=== PATIENT | female | born 1950 | race Caucasian/White ===

== ENCOUNTER → 2017-06-08 | Day surgery (SDC) | payer OTHER ==
[~2017-06-08] VITALS: Ht 175.3 cm; Wt 81.7 kg
[~2017-06-08] MED LIST: 0.9% Sodium Chloride 1,000 ML IV PRN; BACL10TA PO; CALC600T12 PO; DEXL60CA5 PO; DILT120T3 PO; HYDR25TA4 PO; IPRA4AER IH; LACT1CAP26 PO; LEVO100T6 PO; MAGN500C4 PO; NABU500T PO; OXYB10TA PO; POTA2TAB16 PO; PRAM0.754 PO; SIMV20TA4 PO; Sodium Chloride LOK Flush 10 mL Syringe IV PRN; fentaNYL-PF 50 mCg/mL 2 mL Inj IVPUSH PRN
[2017-06-08 09:41] VITALS: BP 125/75; PULSE 71; RESP 17; O2SAT 95
[2017-06-08 11:13] VITALS: BP 99/69; PULSE 66; RESP 15; O2SAT 96
--- NOTE | 2017-06-08 11:15 | PCM.ENDCOL ---
Colonoscopy Date of Service: Jun 08, 2017 Physician Bala Edouard MD Pre Procedure Diagnosis: Screening Post Procedure Dx & Findings: Polyps hemorrhoids Procedure Colonoscopy PROCEDURE IN DETAIL: Prep adequate Withdrawal time 15 minutes After unremarkable rectal examination the Olympus video colonoscope was inserted patient's anal canal and was advanced to cecum. Landmarks were identified including the ileocecal valve and appendiceal orifice. Scope was withdrawn systematically. Visualized colonic mucosa showed healthy shiny mucosa with normal healthy-appearing vasculature. In the cecum, there was a 3 mm polyp which was removed completely using cold snare. In the ascending colon there are total of 4 polyps. 3 of the polyps are about 2-3 mm in size. These were all removed completely using cold snare. One last one was about 1 mm in size which was removed completely using cold forceps. In the transverse colon, there was a 3 mm polyp which was removed completely using cold snare. In the sigmoid colon there were 2 polyps which are about 2-3 mm in size which were all removed completely using cold snare. In the rectum retroflexion was done which showed hemorrhoids. Anal canal was inspected carefully on the way out and hemorrhoids noted. Impression Polyps 8 status post complete removal Hemorrhoids Recommendation Repeat colonoscopy 3 years Follow up in GI clinic Presedation Assessment Risks and Benefits Informed consent was obtained from the patient after all risks and benefits including but not limited to drug reaction, infection, pain, bleeding, perforation, as well as alternatives were discussed. Patient monitoring Continuous pulse oximetry, cardiac monitoring, blood pressure monitoring, IV access, and oxygen at 2L per nasal cannula. Periprocedural Fentanyl: Fentanyl 100mcg Incrementally Midazolam: Midazolam 7mg Incrementally Complications There were no periprocedural complications identified. Post Procedure Plan Post Procedure Recommendations 1. Restrict activities today. 2. Resume normal activities in the morning. 3. Resume medications. 4. Patient informed of normal post procedure side effects as bloating, drowsiness, blood streaking in the stool. 5. average risk CRCS. If colon polyps come back as: -Hyperplastic- can repeat colonoscopy in 10 years -Tubular adenoma- repeat colonoscopy in 5 years -Tubulovillous/villous adenoma- repeat colonoscopy in 3 years -If any dysplasia- return to clinic as soon as possible 6. Please don't hesitate to call me with any questions. Bala Edouard MD Jun 08, 2017 11:15
[2017-06-08 11:23] VITALS: BP 86/63; PULSE 63; RESP 16; O2SAT 96
[2017-06-08 11:33] VITALS: BP 99/59; PULSE 63; RESP 16; O2SAT 97
[2017-06-08 11:52] VITALS: BP 88/59; PULSE 67; RESP 14; O2SAT 96
[2017-06-08 11:53] VITALS: BP 100/63; PULSE 66; RESP 14; O2SAT 98
--- NOTE | 2017-06-12 10:11 | PATH ---
SURGICAL PATHOLOGY Attending Physician:Blaa Edouard M.D. CASE STATUS: Signed Out PATIENT NAME: JUSTIN ARREAGA PID: [id number] : 1950 DATE COLLECTED:06/08/2017 21:33 SPECIMEN: 1: Colon, Polyp 2: Colon, Polyp 3: Colon, Polyp 4: Colon, Polyp CLINICAL HISTORY: 1). CECAL POLYP X 1 2). ASCENDING POLYP X 4 3). TRANSVERSE POLYP X 1 4). SIGMOID POLYP X 2 FINAL DIAGNOSIS: 1. Cecal Polyp x1, Biopsy: Tubular adenoma in two of two fragments. 2. Ascending Polyp x 4, Biopsy: Tubular adenoma in seven of eight fragments. 3. Transverse Polyp x1, Biopsy: Tubular adenoma. 4. Sigmoid Polyp x2, Biopsy: Tubular adenoma in two of two fragments. ICD10: D12.6 GROSS DESCRIPTION: The specimen is received in four formalin filled containers labeled with the patient's name. 1). The specimen is labeled "cecal polyp" and consists of a 0.3 x 0.2 x 0.2 CM portion of tissue which is entirely submitted in cassette 1A. 2). The specimen is labeled "ascending polyp" and consists of multiple portions of tissue which aggregate to 0.3 x 0.3 x 0.2 CM. The specimen is entirely submitted in cassette 2A. 3). The specimen is labeled "transverse polyp" and consists of a 0.3 x 0.2 x 0.2 CM portion of tissue which is entirely submitted in cassette 3A. 4). The specimen is labeled "sigmoid polyp" and consists of 2 portions of tissue which aggregate to 0.3 x 0.3 x 0.2 CM. The specimen is entirely submitted in cassette 4A. 06/08/2017AK ICD-9 CODES: CPT CODES: 1: 41464 2: 38591 3: 86185 4: 96305 Electronically Signed Out Andrea Lazcnao MD [facility] Pathology [facility] [address], [place] [address] Technical component performed at [facility], [address], [place], [address]
== END | disposition home or self-care (01) ==
LOC: END 07:44
PROVIDERS: ATTEND Internal Medicine
DX: Z12.11 Encounter for screening for malignant neoplasm of colon (principal); D12.0 Benign neoplasm of cecum; D12.2 Benign neoplasm of ascending colon; D12.3 Benign neoplasm of transverse colon; D12.5 Benign neoplasm of sigmoid colon; K64.8 Other hemorrhoids; Z86.010 Personal history of colon polyps; I10 Essential (primary) hypertension; G47.33 Obstructive sleep apnea (adult) (pediatric); G25.81 Restless legs syndrome; Z87.891 Personal history of nicotine dependence
CPT/HCPCS: 45385; 99153; G0500; J2250; J3010; J7030

== ENCOUNTER → 2017-06-30 | Day surgery (SDC) | payer MEDICARE ==
[~2017-06-30] VITALS: Ht 175.3 cm; Wt 86.2 kg
[~2017-06-30] MED LIST changes: +0.9% Sodium Chloride 1,000 ML IV ONE; -BACL10TA PO; +Lidocaine Topical 2% 30 mL Jelly ONE; -NABU500T PO; +OLME5TAB3 PO; -POTA2TAB16 PO; -PRAM0.754 PO; +PRAM2.252 PO; +[UNRECOGNIZED DRUG - CODE] PO; +fentaNYL-PF 50 mCg/mL 2 mL Inj ONE
[2017-06-30 07:25] VITALS: BP 123/74; PULSE 52; O2SAT 95
--- NOTE | 2017-06-30 08:23 | PCM.ENDEGD ---
EGD Date of Service: Jun 30, 2017 Physician Bala Edouard MD Pre Procedure Diagnosis: Hoarseness reflux Post Procedure Dx & Findings: Fundic polyp with erosion and Baeza's possible Procedure Esophagogastroduodenoscopy PROCEDURE IN DETAIL: After proper sedation, Olympus video endoscope was inserted into patient's mouth and esophagus was successfully intubated. Scope introduced esophagus. Esophagus showed normal shiny whitish mucosa consistent with squamous cell component. Z line was at 41 cm from the incisors. Some irregularities noted. Unclear if there is Baeza's. Narrow banding suggest that there could be Baeza's. Four-quadrant biopsies obtained. Scope further advanced to the stomach. Stomach showed normal shiny mucosa with normal appearing rugae folds without any ulcer mass erosion. Patient had 2 small fundic polyp with surface erosion. The largest was about 4 mm and the other one was about 3 mm. There both resected completely using cold snare. Cardia fundus body antrum pylorus were all visualized. Retroflexion was done. Stomach was easily inflated and deflatable using air. Scope further events to the distal duodenum. Duodenum revealed normal villous structures with normal appearing folds without any mass ulcer erosion. Impression Possible Baeza's Fundic polyp 2 with erosion. Recommendation Await biopsies 24 hour pH study Presedation Assessment Risks and Benefits Informed consent was obtained from the patient after all risks and benefits including but not limited to drug reaction, infection, pain, bleeding, perforation, as well as alternatives were discussed. Patient monitoring Continuous pulse oximetry, cardiac monitoring, blood pressure monitoring, IV access, and oxygen at 2L per nasal cannula. Periprocedural Fentanyl: Fentanyl 100mcg Incrementally Midazolam: Midazolam 4mg Incrementally Complications There were no periprocedural complications identified. Post Procedure Plan Post Procedure Recommendations 1. Restrict activities today. 2. Resume normal activities in the morning. 3. Resume medications. 4. GERD behavioral modification: - Avoid fatty, acidic, spicy, large meals - Do not lie down after meals - Do not eat or drink anything for at least 2 1/2 hours before going to bed at night - Discontinue tobacco and alcohol - Decrease or avoid caffeine - Avoid chocolate and mints - Decrease weight - Avoid aspirin and non steroidal anti-inflammatory agents (NSAID) such as Aleve, Advil, Mobic, Naproxen, Ibuprofen, etc 5. Add proton pump inhibitor. Take 30 minutes before 1st meal of the day. 6. Patient informed of normal post procedure side effects as bloating, drowsiness, blood streaking in the stool 7. If gastric biopsy reveal H.pylori, continue with appropriate treatment 8. If small bowel biopsy reveals celiac, continue with appropriate treatment 9. Please don't hesitate to call me with any questions Bala Edouard MD Jun 30, 2017 08:23
[2017-06-30 08:28] VITALS: BP 109/74; PULSE 65; RESP 16; O2SAT 91
[2017-06-30 08:42] VITALS: BP 112/76; PULSE 56; RESP 16; O2SAT 91
[2017-06-30 08:57] VITALS: BP 104/70; PULSE 56; RESP 14; O2SAT 97
--- NOTE | 2017-07-01 16:07 | PATH ---
SURGICAL PATHOLOGY Attending Physician:Bala Edouard M.D. CASE STATUS: Signed Out PATIENT NAME: JUSTIN ARREAGA PID: [id number] : 1950 DATE COLLECTED:06/30/2017 21:33 SPECIMEN: 1: Stomach, Polyp, Biopsy 2: Esophagus, Biopsy CLINICAL HISTORY: 1). GASTRIC POLYP X2 2). DISTAL ESOPHAGUS BIOPSY FINAL DIAGNOSIS: 1. Gastric Polyp x2, Biopsy: Portions of fundic gland polyp; consultation pending to rule out atypia. Results will be reported as an addendum. 2. Distal Esophagus, Biopsy: Inflamed portions of squamocolumnar junctional mucosa. Negative for intestinal metaplasia. Negative for dysplasia and malignancy. ICD10: K31.7 GROSS DESCRIPTION: The specimen is received in two formalin filled containers labeled with the patient's name. 1). The specimen is received in formalin and labeled "gastric polyp X2" and consists of 2 portions of tissue which aggregate to 0.3 x 0.3 x 0.3 CM. The specimen is entirely submitted in cassette 1A. 2). The specimen is labeled "distal esophagus" and consists of 3 tiny portions of tissue which aggregate to 0.3 x 0.2 x 0.2 CM. The specimen is entirely submitted in cassette 2A. 06/30/2017DC ICD-9 CODES: CPT CODES: 1: 06893, 90184 2: 95690 PROCEDURE/ADDENDA: Addendum SPI Addendum Diagnosis {Not Entered} Addendum Comment Upon request, the gastric polyp is reviewed in consultation. Sections show a fundic gland polyp with surface erosion and reactive epithelial atypia. There is no evidence of intestinal metaplasia, dysplasia or malignancy. To exclude the unlikely possibility of Helicobacter infection, an immunohistochemical stain was performed and is negative. A control stain shows appropriate reactivity. As part of a routine quality lead, Dr. Ware has reviewed the H&E slide from part 1 and agrees with this interpretation. *This test was developed and its performance characteristics determined by [employer]. It has not been cleared or approved by the [place]. [place]. Food and Drug Administration. The FDA has determined that such clearance or approval is not necessary. This test is used for clinical purposes. It should not be regarded as investigational or for research. Electronically Signed Out Benigno Tan MD, Ph.D. Electronically Signed Out Michaela Flores MD [facility] [address], [place] [address] Technical component performed at [facility], [address], [address]
== END | disposition home or self-care (01) ==
LOC: END 00:31
PROVIDERS: ATTEND Internal Medicine
DX: K31.7 Polyp of stomach and duodenum (principal); R49.0 Dysphonia; K21.9 Gastro-esophageal reflux disease without esophagitis; I10 Essential (primary) hypertension; E78.00 Pure hypercholesterolemia, unspecified; E03.9 Hypothyroidism, unspecified
CPT/HCPCS: 43239; 43251; 88305; 91038; G0500; J2250; J3010; J7030